=== PATIENT | male | born 1950 | race African-American/Black ===

== ENCOUNTER 2018-11-07 12:36 | Emergency (ER) | payer MEDICARE, OTHER ==
[~2018-11-07] VITALS: Ht 157.5 cm; Wt 93.0 kg
[2018-11-07] MEDS ORDERED: KETOROLAC 60MG/2ML VIAL IM ONE (14:45)
[2018-11-07 16:18] VITALS: BP 145/84
== END 2018-11-07 16:19 | disposition home or self-care (01) ==
LOC: ER 12:36
DX: M79.602 Pain in left arm (principal)
CPT/HCPCS: 96372; 99283; J1885